=== PATIENT | female | born 1945 ===

== ENCOUNTER 2017-01-27 12:15 | Emergency (ER) | payer MEDICARE, OTHER ==
[2017-01-27 12:15] VITALS: BMI 46.6
[2017-01-27 12:23] VITALS: BP 135/98; PULSE 79; RESP 16; TEMP 97.8; O2SAT 99
--- NOTE | 2017-01-27 14:10 | ED PDOC ---
Lower Extremity Pain/Injury Time Seen by Provider: 01/27/17 13:01 Chief Complaint (Nursing): Lower Extremity Problem/Injury Chief Complaint (Provider): B/L knee pain History Per: Patient History/Exam Limitations: no limitations Onset/Duration Of Symptoms: Days Current Symptoms Are (Timing): Still Present Pain Scale Rating Of: 6 Additional Complaint(s): 71 y/o F with PMHx of IDDM, HTN presents to ED c/o B/L knee pain for the past month. Patient admis H of multiple falls, last 1 month ago. Since then L/knee pain has been presents and for the past 2 weeks R/Knee pain. Denies numbness, tingling, weakness. Pain is anterior, worse with knee flexion and ambulation and does not radiates. Denies CP, Headaches, Back pain, vision changes or SOB Past Medical History Reviewed: Nursing Documentation Vital Signs: Last Vital Signs Temp 97.8 F 01/27/17 12:23 Pulse 79 01/27/17 12:23 Resp 16 01/27/17 12:23 BP 135/98 H 01/27/17 12:23 Pulse Ox 99 01/27/17 12:23 - Medical History PMH: Arthritis, Asthma, CAD, Depression, GERD, HTN, Hypercholesterolemia, Hyperlipidemia, Hypothyroidism, Osteoporosis Denies: Chronic Kidney Disease - Surgical History Surgical History: (x 5) - Family History Family History: States: Unknown Family Hx - Home Medications Home Medications: Ambulatory Orders Medication Instructions Recorded Albuterol HFA [Ventolin HFA 90 1 puff IH Q4 PRN #1 unit 10/17/14 mcg/actuation (8 g)] Alendronate [Fosamax] 70 mg PO QWK 10/17/14 Alprazolam [Xanax] 0.5 mg PO BID 10/17/14 Aspirin [Aspirin] 162 mg PO DAILY 10/17/14 Benzonatate [Tessalon Perles] 200 mg PO Q8H PRN #30 tab 10/17/14 Calcium/Cholecalciferol [Oysco 500 1 tab PO TID 10/17/14 + D 500 mg-200 Iu] Enalapril Maleate [Enalapril] 10 mg PO DAILY 10/17/14 Gabapentin [Gabapentin] 300 mg PO BID 10/17/14 Insulin Glargine,Hum.rec.anlog 30 unit SC HS 10/17/14 [Lantus] Insulin Lispro, Recombinant 15 unit SC QPM 10/17/14 [Humalog] Insulin Lispro, Recombinant 17 unit SC QAM 10/17/14 [Humalog] Levothyroxine Sodium [Synthroid] 137 mcg PO DAILY 10/17/14 Metformin HCl [Metformin HCl] 1,000 mg PO BID 10/17/14 QUEtiapine [Seroquel] 100 mg PO HS 10/17/14 Simvastatin [Zocor] 20 mg PO DAILY 10/17/14 Sitagliptin Phosphate [Januvia] 100 mg PO DAILY 10/17/14 Albuterol 0.083% [Albuterol 3 ml IH Q6H PRN #30 neb 10/12/15 Sulfate 3 Ml] Acetaminophen [Tylenol Extra 500 mg PO TID PRN #30 tablet 12/11/15 Strength] Albuterol 0.083% [Albuterol 0.083% 3 ml IH Q6H PRN #30 neb 06/23/16 Inhal Anne-Marie (2.5 mg/3 ml) UD] Albuterol HFA [Ventolin HFA 90 2 puff IH [id number] PRN #1 bottle 06/23/16 mcg/actuation (8 g)] Nebulizer [Compact Compressor 1 dev XX PRN PRN #1 dev 06/23/16 Nebulizer] Prednisone 50 mg PO DAILY #4 tab 06/23/16 Lactulose 10 gm PO DAILY #1 solution 08/03/16 traMADol [Ultram] 50 mg PO Q8 #10 tab 08/03/16 Naproxen 500 mg PO BID #14 tab 01/27/17 - Allergies Allergies/Adverse Reactions: Allergies Allergy/AdvReac Type Severity Reaction Status Date / Time No Known Allergies Allergy Verified 08/03/16 07:29 Review of Systems ROS Statement: Except As Marked, All Systems Reviewed And Found Negative Musculoskeletal: Positive for: Other (B/L knee pain) Physical Exam - Reviewed Nursing Documentation Reviewed: Yes Vital Signs Reviewed: Yes - Physical Exam Appears: Positive for: No Acute Distress Head Exam: Positive for: ATRAUMATIC, NORMAL INSPECTION Skin: Positive for: Warm Eye Exam: Positive for: EOMI, PERRL Cardiovascular/Chest: Positive for: Regular Rate, Rhythm. Negative for: Gallop Respiratory: Positive for: Normal Breath Sounds. Negative for: Wheezing Extremity: Positive for: Tenderness (L/knee. ), Other (Limited ROM L/knee due to pain. No skin changes. No eviden swelling present.) - ECG O2 Sat by Pulse Oximetry: 99 - Progress ED Course And Treament: Pain improved with TOradol IM Knee Xray shows O/A changes. No acute Fx or dislocation seen(Pending official report) Patient will be DC home with NSAIDs and F/U with PMD in 2 to 3 days for further work up Disposition - Clinical Impression Clinical Impression: Knee osteoarthritis - Patient ED Disposition Is Patient to be Admitted: No - Disposition Disposition: Routine/Home Disposition Time: 15:00 Condition: IMPROVED Additional Instructions: F/U with PMD in 2-3 days. Prescriptions: Naproxen 500 mg PO BID #14 tab Instructions: Knee Pain (ED) Forms: [facility] (Irish) Print Language: BENINESE
--- NOTE | 2017-01-27 15:36 | RAD ---
PROCEDURE: Bilateral Knee Radiographs. HISTORY: B/L knee pain COMPARISON: Prior left knee radiograph 11/08/2010. FINDINGS: BONES: No fracture or suspicious lytic or blastic change is seen in either left or right knees. JOINTS: Advanced osteoarthritis is identified bilaterally. [place] joint space narrowing osteophyte development and articular cortical sclerosis appreciate the lateral femorotibial part of the right and medial femorotibial choroid at the left with subchondral cyst formation developed at the right knee. Limited osteophytic changes seen at the medial right foramen femorotibial compartments allan lateral left femorotibial compartment. There borderline bilateral suprapatellar bursa effusions. Vascular calcifications in the posterior knee thigh and upper leg soft tissues. A nonspecific heterogeneous calcifications seen at the left popliteal fossa. No definite bursitis pattern. Advanced the joint space narrowing and osteophyte development seen at the bilateral patellofemoral compartments. SOFT TISSUES: As above JOINT EFFUSION: As above OTHER FINDINGS: None. IMPRESSION: Advanced bilateral knee osteoarthritis without fracture subluxation or dislocation appreciated.
== END 2017-01-27 15:45 | disposition home or self-care (01) ==
LOC: H.ER 12:15
DX: M17.0 Bilateral primary osteoarthritis of knee (principal); I10 Essential (primary) hypertension; J45.909 Unspecified asthma, uncomplicated; Z86.59 Personal history of other mental and behavioral disorders; M81.0 Age-related osteoporosis without current pathological fracture; E11.9 Type 2 diabetes mellitus without complications; Z79.4 Long term (current) use of insulin
CPT/HCPCS: 73562; 96372; 99284; J1885

== ENCOUNTER 2017-05-04 10:36 | Emergency (ER) | payer MEDICARE, OTHER ==
[2017-05-04 10:36] VITALS: BMI 46.6
[2017-05-04 10:42] VITALS: TEMP 97
[2017-05-04] MEDS ORDERED: DiphenhydrAMINE 50 mg/ml Inj IVP STA (11:07)
[2017-05-04] MEDS ORDERED: DiphenhydrAMINE 50 mg/ml Inj ONE (11:13)
[2017-05-04] MEDS ORDERED: Sodium Chloride 0.9% 1,000 ML IV SCH (11:15)
--- NOTE | 2017-05-04 11:23 | ED PDOC ---
HPI: General Adult Time Seen by Provider: 05/04/17 10:50 Chief Complaint (Nursing): Abnormal Skin Integrity Chief Complaint (Provider): Itching History Per: Patient History/Exam Limitations: no limitations Onset/Duration Of Symptoms: Days Have you had recent travel within the past 21 days to any of the following countries: [place], [place], [place] or [place]?: No Current Symptoms Are (Timing): Still Present Additional History Per: Family Additional Complaint(s): 71yo female with past medical history of diabetes and hypertension, presents to ED for evaluation of itchiness all over her body for the past 3-4 days. Patient is unsure as to the obvious inciting factor of her symptom. Patient denies taking any new medications and states she has no recollection of exposure to new foods. She denies any trouble breathing, lip or throat swelling. Patient states she has been able to eat and drink normally. Of note, patient's daughter present at bedside who reports the patient lost her medications 2 weeks ago in a taxicab and has not had replacements yet; daughter believes the patient's itching might be caused due to non-compliance with her medications. Past Medical History Reviewed: Historical Data, Nursing Documentation, Vital Signs Vital Signs: Last Vital Signs Temp 97.0 F L 05/04/17 11:05 Pulse 79 05/04/17 11:05 Resp 22 05/04/17 11:05 BP 128/58 L 05/04/17 11:05 Pulse Ox 98 05/04/17 11:28 - Medical History PMH: Arthritis, Asthma, CAD, Depression, GERD, HTN, Hypercholesterolemia, Hyperlipidemia, Hypothyroidism, Osteoporosis Denies: Chronic Kidney Disease - Surgical History Surgical History: (x 5) - Family History Family History: States: No Known Family Hx, Unknown Family Hx - Living Arrangements Living Arrangements: With Family - Home Medications Home Medications: Ambulatory Orders Medication Instructions Recorded Albuterol HFA [Ventolin HFA 90 1 puff IH Q4 PRN #1 unit 10/17/14 mcg/actuation (8 g)] Alendronate [Fosamax] 70 mg PO QWK 10/17/14 Alprazolam [Xanax] 0.5 mg PO BID 10/17/14 Aspirin [Aspirin] 162 mg PO DAILY 10/17/14 Benzonatate [Tessalon Perles] 200 mg PO Q8H PRN #30 tab 10/17/14 Calcium/Cholecalciferol [Oysco 500 1 tab PO TID 10/17/14 + D 500 mg-200 Iu] Enalapril Maleate [Enalapril] 10 mg PO DAILY 10/17/14 Gabapentin [Gabapentin] 300 mg PO BID 10/17/14 Insulin Glargine,Hum.rec.anlog 30 unit SC HS 10/17/14 [Lantus] Insulin Lispro, Recombinant 15 unit SC QPM 10/17/14 [Humalog] Insulin Lispro, Recombinant 17 unit SC QAM 10/17/14 [Humalog] Levothyroxine Sodium [Synthroid] 137 mcg PO DAILY 10/17/14 Metformin HCl [Metformin HCl] 1,000 mg PO BID 10/17/14 QUEtiapine [Seroquel] 100 mg PO HS 10/17/14 Simvastatin [Zocor] 20 mg PO DAILY 10/17/14 Sitagliptin Phosphate [Januvia] 100 mg PO DAILY 10/17/14 Albuterol 0.083% [Albuterol 3 ml IH Q6H PRN #30 neb 10/12/15 Sulfate 3 Ml] Acetaminophen [Tylenol Extra 500 mg PO TID PRN #30 tablet 12/11/15 Strength] Albuterol 0.083% [Albuterol 0.083% 3 ml IH Q6H PRN #30 neb 06/23/16 Inhal Anne-Marie (2.5 mg/3 ml) UD] Albuterol HFA [Ventolin HFA 90 2 puff IH [id number] PRN #1 bottle 06/23/16 mcg/actuation (8 g)] Nebulizer [Compact Compressor 1 dev XX PRN PRN #1 dev 06/23/16 Nebulizer] Prednisone 50 mg PO DAILY #4 tab 06/23/16 Lactulose 10 gm PO DAILY #1 solution 08/03/16 traMADol [Ultram] 50 mg PO Q8 #10 tab 08/03/16 Naproxen 500 mg PO BID #14 tab 01/27/17 Famotidine [Pepcid] 20 mg PO BID #30 tab 05/04/17 Hydroxyzine HCl 25 mg PO TID PRN #15 tablet 05/04/17 - Allergies Allergies/Adverse Reactions: Allergies Allergy/AdvReac Type Severity Reaction Status Date / Time No Known Allergies Allergy Verified 05/04/17 11:05 Review of Systems ROS Statement: Except As Marked, All Systems Reviewed And Found Negative Constitutional: Negative for: Fever, Chills ENT: Negative for: Throat Swelling, Other (lip swellin) Cardiovascular: Negative for: Chest Pain Respiratory: Negative for: Shortness of Breath Skin: Positive for: Other (itching all over body) Physical Exam - Reviewed Nursing Documentation Reviewed: Yes Vital Signs Reviewed: Yes - Physical Exam Appears: Positive for: Non-toxic, No Acute Distress Head Exam: Positive for: ATRAUMATIC, NORMAL INSPECTION, NORMOCEPHALIC Skin: Positive for: Warm, Rash (scratch markes noted to trunk and back; area of redness noted to volar surface of left forearm.) Eye Exam: Positive for: Normal appearance Neck: Positive for: Supple Cardiovascular/Chest: Positive for: Regular Rate, Rhythm Respiratory: Positive for: Normal Breath Sounds. Negative for: Respiratory Distress Neurologic/Psych: Positive for: Alert, Oriented. Negative for: Motor/Sensory Deficits - Laboratory Results Result Diagrams: 05/04/17 11:30 05/04/17 11:30 - ECG O2 Sat by Pulse Oximetry: 98 (RA) Pulse Ox Interpretation: Normal Medical Decision Making Medical Decision Making: Time: 1106 Impression: Generalized itching, possible allergic reaction Plan: -- Benadryl -- Pepicd -- IV Fluids Reassess Scribe Attestation: Documented by Ruth Canales acting as a scribe for Roseann Hinojosa MD. Provider Attestation: All medical record entries made by the Scribe were at my direction and personally dictated by me. I have reviewed the chart and agree that the record accurately reflects my personal performance of the history, physical exam, medical decision making, and the department course for this patient. I have also personally directed, reviewed, and agree with the discharge instructions and disposition. Disposition - Clinical Impression Clinical Impression: Pruritic condition - Patient ED Disposition Is Patient to be Admitted: No Doctor Will See Patient In The: Office Counseled Patient/Family Regarding: Diagnosis, Need For Followup, Rx Given - Disposition Disposition: Routine/Home Disposition Time: 13:15 Condition: IMPROVED Prescriptions: Famotidine [Pepcid] 20 mg PO BID #30 tab Hydroxyzine HCl 25 mg PO TID PRN #15 tablet PRN Reason: Itching / Pruritus Instructions: Itchy Skin (ED) Forms: [facility] (Icelandic) - POA Present On Arrival: None
[2017-05-04 11:35] LABS: BASO # 0.1 K/uL (0.0-0.2); BASO % 0.8 % (0.0-2.0); EOS # 0.1 K/uL (0.0-0.7); EOS % 1.1 % (0.0-4.0); HEMATOCRIT 36.8 % (34.0-47.0); LYMPH # 1.7 K/uL (1.0-4.3); LYMPH % 21.7 % (20.0-40.0); MEAN CELL VOLUME 87.2 fl (81.0-99.0); MEAN CORPUSCULAR HGB CONC 34.5 g/dL (33.0-37.0); MONO # 0.6 K/uL (0.0-0.8); MONO % 7.2 % (0.0-10.0); NEUT # 5.3 K/uL (1.8-7.0); NEUT % 69.2 % (50.0-75.0); NRBC % 0.2 % (0.0-0.0); RED CELL DISTRIBUTION WIDTH 13.6 % (11.5-14.5); WHITE BLOOD COUNT 7.7 K/uL (4.8-10.8)
[2017-05-04 11:52] LABS: BILIRUBIN,TOTAL 0.7 mg/dl (0.2-1.3); CALCIUM 9.5 mg/dL (8.4-10.2)
[2017-05-04 12:04] LABS: POTASSIUM 5.2 MMOL/L (3.6-5.0); TOTAL PROTEIN 8.3 G/DL (6.3-8.2)
[2017-05-04 14:15] VITALS: BP 148/76; PULSE 77; RESP 20; O2SAT 96
== END 2017-05-04 14:15 | disposition home or self-care (01) ==
LOC: H.ER 10:36
DX: L29.9 Pruritus, unspecified (principal); E11.9 Type 2 diabetes mellitus without complications; E78.00 Pure hypercholesterolemia, unspecified; F32.9 Major depressive disorder, single episode, unspecified; I10 Essential (primary) hypertension; I25.10 Atherosclerotic heart disease of native coronary artery without angina pectoris; J45.909 Unspecified asthma, uncomplicated; K21.9 Gastro-esophageal reflux disease without esophagitis; Z79.4 Long term (current) use of insulin; Z79.82 Long term (current) use of aspirin
CPT/HCPCS: 80053; 82948; 85025; 96374; 96375; 99283; J1200; J7040

== ENCOUNTER 2018-08-31 10:38 | Observation (INO) | payer MEDICARE, OTHER ==
--- NOTE | 2018-08-31 11:06 | ED PDOC ---
HPI: SOB/CHF/COPD Time Seen by Provider: 08/31/18 10:54 Chief Complaint (Nursing): Shortness Of Breath History Per: Patient Onset/Duration Of Symptoms: Days (3) Current Symptoms Are (Timing): Still Present Exacerbating Factor(s): Coughing Severity: Mild Associated Symptoms: Chest Pain, Productive Cough. denies: Fever Additional Complaint(s): Right sided chest pain assoc with cough productive dark sputum x 3 days. Denies fever. Also assoc with mild SOB. Had similar sxs last Novemeber with low probability V/Q scan and nonobstructive CAD on cath. Past Medical History Vital Signs: Last Vital Signs Temp 98 F 08/31/18 10:57 Pulse 76 08/31/18 10:57 Resp 22 08/31/18 10:57 BP 181/76 H 08/31/18 10:57 Pulse Ox 99 08/31/18 10:57 - Medical History PMH: Arthritis, Asthma, CAD, Depression, Diabetes, GERD, HTN, Hy percholesterolemia, Hyperlipidemia, Hypothyroidism, Osteoporosis Denies: Chronic Kidney Disease - Surgical History Surgical History: (x 5) - Family History Family History: States: Unknown Family Hx - Home Medications Home Medications: Ambulatory Orders Medication Instructions Recorded Albuterol Sulfate [Ventolin Hfa] 2 puff IH Q6 PRN 03/07/18 Alprazolam [Xanax] 0.5 mg PO Q12 03/07/18 Amantadine [Amantadine 100 mg Cap] 100 mg PO DAILY 03/07/18 Aspirin [Ecotrin] 81 mg PO DAILY 03/07/18 Enalapril Maleate [Vasotec] 10 mg PO DAILY 03/07/18 Gabapentin [Neurontin] 300 mg PO Q12 03/07/18 Insulin Glargine, Recombina 42 unit SC QPM 03/07/18 [Lantus] Levothyroxine [Synthroid] 88 mcg PO DAILY 03/07/18 MetFORMIN [glucoPHAGE] 1,000 mg PO BID 03/07/18 SITagliptin [Januvia] 100 mg PO DAILY 03/07/18 Salmeterol Xinafoate/Fluticaso 2 puff IH Q12 03/07/18 [Advair Hfa 45-21] Metoprolol Tartrate [Lopressor] 25 mg PO DAILY 04/25/18 - Allergies Allergies/Adverse Reactions: Allergies Allergy/AdvReac Type Severity Reaction Status Date / Time No Known Allergies Allergy Verified 08/31/18 10:57 Review of Systems ROS Statement: Except As Marked, All Systems Reviewed And Found Negative Constitutional: Negative for: Fever Cardiovascular: Positive for: Chest Pain Respiratory: Positive for: Cough, Shortness of Breath, Sputum Gastrointestinal: Positive for: Abdominal Pain. Negative for: Nausea, Vomiting, Diarrhea Genitourinary Female: Negative for: Dysuria, Frequency Physical Exam - Reviewed Nursing Documentation Reviewed: Yes Vital Signs Reviewed: Yes - Physical Exam Appears: Positive for: Non-toxic, No Acute Distress Head Exam: Positive for: ATRAUMATIC, NORMAL INSPECTION, NORMOCEPHALIC Skin: Positive for: Normal Color, Warm, DRY Eye Exam: Positive for: EOMI, Normal appearance, PERRL ENT: Positive for: Normal ENT Inspection Neck: Positive for: Normal, Painless ROM Cardiovascular/Chest: Positive for: Regular Rate, Rhythm Respiratory: Positive for: CNT, Normal Breath Sounds Gastrointestinal/Abdominal: Positive for: Soft, Tenderness (RLQ ). Negative for: Guarding, Rebound Back: Positive for: Normal Inspection Extremity: Positive for: Normal ROM Neurological/Psych: Positive for: Awake, Alert, Normal Tone - Laboratory Results Result Diagrams: 08/31/18 11:40 08/31/18 11:40 - ECG O2 Sat by Pulse Oximetry: 99 Medical Decision Making Medical Decision Makin Labs reviewed, patient with elevated blood glucose level at 515. Human insulin 10 units ordered. Disposition - Clinical Impression Clinical Impression: Chest pain, Uncontrolled diabetes mellitus - Patient ED Disposition Is Patient to be Admitted: Yes - Disposition Disposition Time: 14:06 Condition: FAIR Forms: [employer] (Somali) - Pt Status Changed To: Hospital Disposition Of: Observation - POA Present On Arrival: None
[2018-08-31 11:53] LABS: BASO % 0.8 % (0.0-2.0); EOS # 0.2 K/uL (0.0-0.7); EOS % 3.4 % (0.0-4.0); HEMOGLOBIN 11.9 g/dL (12.0-16.0); LYMPH # 0.9 K/uL (1.0-4.3); LYMPH % 18.2 % (20.0-40.0); MEAN CELL VOLUME 90.6 fl (81.0-99.0); MEAN CORPUSCULAR HEMOGLOBIN 29.8 pg (27.0-31.0); MEAN CORPUSCULAR HGB CONC 32.9 g/dL (33.0-37.0); MEAN PLATELET VOLUME 8.8 fl (7.2-11.7); MONO # 0.4 K/uL (0.0-0.8); MONO % 7.9 % (0.0-10.0); NEUT # 3.6 K/uL (1.8-7.0); NEUT % 69.7 % (50.0-75.0); RBC 3.99 Mil/uL (3.80-5.20); RED CELL DISTRIBUTION WIDTH 14.1 % (11.5-14.5); WHITE BLOOD COUNT 5.2 K/uL (4.8-10.8)
[2018-08-31 12:25] LABS: ALB/GLOB RATIO 1.2 (1.0-2.1); ALBUMIN 4.3 g/dL (3.5-5.0); ALT/SGPT 13 U/L (9-52); AST/SGOT 16 U/L (14-36); BLOOD UREA NITROGEN 32 mg/dl (7-17); CALCIUM 9.9 mg/dL (8.4-10.2); GFR NON-AFRICAN AMERICAN 40
[2018-08-31] MEDS ORDERED: Sodium Chloride 0.9% 1,000 ML IV STA (12:27)
[2018-08-31] MEDS ORDERED: Insulin Regular 100 units/ml SC STA (12:27)
--- NOTE | 2018-08-31 14:01 | CT ---
Date of service: 08/31/2018 PROCEDURE: CT Abdomen and Pelvis without intravenous contrast HISTORY: COMPARISON: None. TECHNIQUE: CT scan of the abdomen and pelvis was performed without administration of intravenous contrast. Oral contrast was not administered. Coronal and sagittal reformatted images were obtained. Radiation dose: Total exam DLP = 1297.74 mGy-cm. This CT exam was performed using one or more of the following dose reduction techniques: Automated exposure control, adjustment of the mA and/or kV according to patient size, and/or use of iterative reconstruction technique. FINDINGS: LOWER THORAX: The visualized lungs are clear. LIVER: Normal in size. No gross lesion or ductal dilatation. GALLBLADDER AND BILE DUCTS: Solitary calcified gallstone. No common bile duct dilatation. PANCREAS: Mild fatty atrophy of the pancreas. No gross lesion or ductal dilatation. SPLEEN: Normal in size. ADRENALS: Normal in size. No discrete nodule. KIDNEYS AND URETERS: Both kidneys are normal in size. No hydronephrosis or nephrolithiasis. There is an extrarenal pelvis on the right and mild dilatation of the right ureteral without evidence for obstructing stone.. 1.5 cm simple cyst in the right interpolar region. Nonspecific perinephric fat stranding. VASCULATURE: Normal in caliber. No aortic aneurysm. There are aortic atherosclerotic calcifications present. BOWEL: Evaluation of the bowel is limited in the absence of oral contrast. There are fluid-filled mildly dilated small bowel loops and fluid in the ascending and transverse colon. There is moderate amount of stool in the left hemicolon. There is scattered colonic diverticulosis without CT evidence for acute diverticulitis. APPENDIX: Normal appendix. PERITONEUM: No free fluid. No free air. LYMPH NODES: No enlarged lymph nodes. BLADDER: Over distended and normal in appearance. REPRODUCTIVE: The uterus is normal in size. The uterus is stretched over the posterior wall of the urinary bladder and overlies the dome of the bladder. BONES: No acute fracture. Within normal limits for the patient's age. OTHER FINDINGS: None. IMPRESSION: No evidence for nephrolithiasis, hydronephrosis or obstructive uropathy. Extrarenal pelvis in the right kidney and mild diffuse dilatation of the right ureteral without evidence of obstructing stone. Findings could be related to recent passage of stone or gastro Findings are most compatible with a nonspecific acute infectious/inflammatory enteritis and colitis. No bowel obstruction. Scattered colonic diverticulosis without CT evidence for acute diverticulitis. Cholelithiasis.
[2018-08-31] MEDS ORDERED: Nitroglycerin 2% 15 INCH/30 GM TUBE TOP STA (14:07)
[2018-08-31] MEDS ORDERED: Nitroglycerin 2% Ointment Foilpak UD TOP ONE (15:01)
--- NOTE | 2018-08-31 15:31 | CP.PCM.HP ---
<Kunal Cabrales - Last Filed: 08/31/18 18:37> History of Present Illness - History of Present Illness History of Present Illness: 72 Y/O female with PMH of multiple comorbidities including Obesity, uncontrolled IDDM, HTN, hypthyroidsm, OA, Anxiety and Intermittent Asthma presents to the ED with c/o intermittent moderate right sided chest pain for the last 2 to 3 days, presssure like in character, with no radiation, she has not noted association with activity. Patient laciso reports c/o fatigue for approximately 2 weeks associated with dry cough (no phlegm) and SOB on exertion. Patient is a poor historian and also part of the history is obtained from family at bedside and reviewed of MR. Patient denies fever, chills, abdominal pain, N/V/D, or dyaphoresis at this time. Of note: patient was admitted in February 2018 with similar symptoms, Lung VQ scan done showed low probavility PE. -Patient had cardiac cath on May 03, [address] Garcia due to symptoms consistent with atypical chest pain, the cath showed impression Mild nonobstructive coronary artery disease. Recommendation to continue medical management and risk factors modifications. -Echocardiogrma done November 10, [address] Bradshaw showed LV normal thickness and syze, normal LV segmenatl motion. EF low normal 45-50%, There is moderate pulmonary htn. ROS: 12 systems reviewed and found unremarkable, except as per HPI PMD: [facility] PMH: HTN, DM, Asthma, OA, Hypothyroidsm FMH: Father of cancer (unclear to pt). SOCHx: Former smoker quit 15 years ago, denies ETOH, lives alone at home and ambulates with a cane. ALLERG: NKDA SURG: Reports C-sections x 4, Tubal ligation. Next of renetta: Son Bi [phone] ED Course: Hb 11.9, Hto36.2 Chem: K 5.1, BUN 32, Creat 1.3, GFR 40. Troponin x1 negative BS 515 on arrival EKG NSR with PVC, no T or ST changes. CXR no active pulmonary disease. ED treatments: IVF NS @250 1L given, insulin Present on Admission - Present on Admission Any Indicators Present on Admission: No History of DVT/PE: No History of Uncontrolled Diabetes: Yes Urinary Catheter: No Decubitus Ulcer Present: No Past Patient History - Past Medical History & Family History Past Medical History?: Yes - Past Social History Smoking Status: Never Smoked - CARDIAC Hx Hypercholesterolemia: Yes Hx Hypertension: Yes - PULMONARY Hx Asthma: Yes - NEUROLOGICAL Hx Neurological Disorder: No - HEENT Hx HEENT Problems: Yes - RENAL Hx Chronic Kidney Disease: No - ENDOCRINE/METABOLIC Hx Hypothyroidism: Yes - HEMATOLOGICAL/ONCOLOGICAL Hx Blood Transfusions: Yes Hx Blood Transfusion Reaction: No - INTEGUMENTARY Hx Dermatological Problems: No - MUSCULOSKELETAL/RHEUMATOLOGICAL Hx Arthritis: Yes Hx Osteoporosis: Yes - GASTROINTESTINAL Hx Gastrointestinal Disorders: Yes Hx Gastroesophageal Reflux: Yes - GENITOURINARY/GYNECOLOGICAL Hx Genitourinary Disorders: No - PSYCHIATRIC Hx Depression: Yes - SURGICAL HISTORY Hx Surgeries: Yes Hx Cardiac Catheterization: Yes Hx Section: Yes Hx Tubal Ligation: Yes - ANESTHESIA Hx Anesthesia: Yes Hx Anesthesia Reactions: No Hx Malignant Hyperthermia: No Meds Allergies/Adverse Reactions: Allergies Allergy/AdvReac Type Severity Reaction Status Date / Time No Known Allergies Allergy Verified 08/31/18 10:57 Physical Exam - Constitutional Appears: No Acute Distress - Head Exam Head Exam: ATRAUMATIC, NORMOCEPHALIC - Eye Exam Eye Exam: EOMI - ENT Exam ENT Exam: Mucous Membranes Dry - Respiratory Exam Respiratory Exam: Clear to Auscultation Bilateral. absent: Wheezes - Cardiovascular Exam Cardiovascular Exam: REGULAR RHYTHM, +S1, +S2 - GI/Abdominal Exam GI & Abdominal Exam: Soft - Extremities Exam Extremities exam: Negative for: pedal edema - Neurological Exam Neurological exam: Alert, Oriented x3 - Psychiatric Exam Psychiatric exam: Anxious - Skin Skin Exam: Normal Color, Warm Results - Vital Signs Recent Vital Signs: Last Vital Signs Temp 98 F 08/31/18 10:57 Pulse 64 08/31/18 14:05 Resp 18 08/31/18 14:05 BP 131/74 08/31/18 13:35 Pulse Ox 99 08/31/18 14:06 - Labs Result Diagrams: 08/31/18 11:40 08/31/18 11:40 Labs: Laboratory Results - last 24 hr 08/31/18 08/31/18 08/31/18 11:40 11:40 12:20 WBC 5.2 RBC 3.99 Hgb 11.9 L Hct 36.2 MCV 90.6 MCH 29.8 MCHC 32.9 L RDW 14.1 Plt Count 265 MPV 8.8 Neut % (Auto) 69.7 Lymph % (Auto) 18.2 L [place] % (Auto) 7.9 Eos % (Auto) 3.4 Baso % (Auto) 0.8 Neut # (Auto) 3.6 Lymph # (Auto) 0.9 L [place] # (Auto) 0.4 Eos # (Auto) 0.2 Baso # (Auto) 0.0 Sodium 139 Potassium 5.1 H Chloride 104 Carbon Dioxide 23 Anion Gap 17 BUN 32 H Creatinine 1.3 H Est GFR ( Amer) 49 Est GFR (Non-Af Amer) 40 POC Glucose (mg/dL) > 500 H* Random Glucose 515 H* D Calcium 9.9 Total Bilirubin 0.4 AST 16 ALT 13 Alkaline Phosphatase 199 H D Troponin I < 0.0120 Total Protein 7.9 Albumin 4.3 Globulin 3.6 Albumin/Globulin Ratio 1.2 08/31/18 08/31/18 13:34 15:25 WBC RBC Hgb Hct MCV MCH MCHC RDW Plt Count MPV Neut % (Auto) Lymph % (Auto) [place] % (Auto) Eos % (Auto) Baso % (Auto) Neut # (Auto) Lymph # (Auto) [place] # (Auto) Eos # (Auto) Baso # (Auto) Sodium Potassium Chloride Carbon Dioxide Anion Gap BUN Creatinine Est GFR ( Amer) Est GFR (Non-Af Amer) POC Glucose (mg/dL) 414 H* 337 H Random Glucose Calcium Total Bilirubin AST ALT Alkaline Phosphatase Troponin I Total Protein Albumin Globulin Albumin/Globulin Ratio Assessment & Plan - Assessment and Plan (Free Text) Assessment: 72 Y/O female with PMH of multiple comorbidities including Obesity, uncontrolled IDDM, HTN, hypthyroidsm, OA, Anxiety and Inttermittent Asthma presents to the ED with c/o intermittent moderate right sided chest pain for the last 2 to 3 days, presssure like in character, with no radiation, she has not noted association with activity. Patient allso reports c/o fatigue for approximately 2 weeks associated with dry cough (no phlegm) and SOB on exertion. Patient will be admitted for atypical ches pain r/o ACS. Plan: Atypical chest pain r/o ACS Admite to tele VS monitoring O2 2L NC prn EKG: NSR with PVC, no T or ST changes. CXR no active pulmonary disease TropnoninI x1 negative, F/u x2 more Consult Dr Bradshaw, aware, recommendations appreciated. Asp 325 given, c/w asp 81 PO QD Atorvastatin 20 PO QHS c/w Metoprolol 25 QHS NTG SL prn CP q5 min x3 dose f/u Lipid panel IDDM Uncontrolled HbA1C 8.4 02/2018 Diabetic diet BS 515 on arrival c/w IVF NS Accucheck AC/HS with regulal Insulin SS C/w I Lispro Insulin levemir 42 Sc Qhs F/u BMP Azotemia-BUN 32/creat 1.3 Posibly SUSAN 2/2 dehydration, likely underlying CKD as well Gentle hydration Enalapril held F/u BMP HTN Controlled c/w Metoprolol 25 QHS Hypothryopidsm c/w Levothyroxine 88 mcg PO QD TSH 0.67 in 02/2018 f/u repeat TSH DVT prohylaxis Lovenox 40 SC QD (adequate for creat cl) <Adam Sandhu D - Last Filed: 08/31/18 19:08> Results - Vital Signs Recent Vital Signs: Last Vital Signs Temp 98.0 F 08/31/18 16:43 Pulse 74 08/31/18 16:43 Resp 17 08/31/18 16:43 BP 162/60 H 08/31/18 16:43 Pulse Ox 99 08/31/18 16:43 - Labs Result Diagrams: 08/31/18 11:40 08/31/18 11:40 Labs: Laboratory Results - last 24 hr 08/31/18 08/31/18 08/31/18 11:40 11:40 12:20 WBC 5.2 RBC 3.99 Hgb 11.9 L Hct 36.2 MCV 90.6 MCH 29.8 MCHC 32.9 L RDW 14.1 Plt Count 265 MPV 8.8 Neut % (Auto) 69.7 Lymph % (Auto) 18.2 L [place] % (Auto) 7.9 Eos % (Auto) 3.4 Baso % (Auto) 0.8 Neut # (Auto) 3.6 Lymph # (Auto) 0.9 L [place] # (Auto) 0.4 Eos # (Auto) 0.2 Baso # (Auto) 0.0 Sodium 139 Potassium 5.1 H Chloride 104 Carbon Dioxide 23 Anion Gap 17 BUN 32 H Creatinine 1.3 H Est GFR ( Amer) 49 Est GFR (Non-Af Amer) 40 POC Glucose (mg/dL) > 500 H* Random Glucose 515 H* D Calcium 9.9 Total Bilirubin 0.4 AST 16 ALT 13 Alkaline Phosphatase 199 H D Troponin I < 0.0120 Total Protein 7.9 Albumin 4.3 Globulin 3.6 Albumin/Globulin Ratio 1.2 Triglycerides Cholesterol LDL Cholesterol Direct HDL Cholesterol 08/31/18 08/31/18 08/31/18 13:34 15:25 16:00 WBC RBC Hgb Hct MCV MCH MCHC RDW Plt Count MPV Neut % (Auto) Lymph % (Auto) [place] % (Auto) Eos % (Auto) Baso % (Auto) Neut # (Auto) Lymph # (Auto) [place] # (Auto) Eos # (Auto) Baso # (Auto) Sodium Potassium Chloride Carbon Dioxide Anion Gap BUN Creatinine Est GFR ( Amer) Est GFR (Non-Af Amer) POC Glucose (mg/dL) 414 H* 337 H Random Glucose Calcium Total Bilirubin AST ALT Alkaline Phosphatase Troponin I Total Protein Albumin Globulin Albumin/Globulin Ratio Triglycerides 127 Cholesterol 163 LDL Cholesterol Direct 55 HDL Cholesterol 72 H 08/31/18 18:02 WBC RBC Hgb Hct MCV MCH MCHC RDW Plt Count MPV Neut % (Auto) Lymph % (Auto) [place] % (Auto) Eos % (Auto) Baso % (Auto) Neut # (Auto) Lymph # (Auto) Collier # (Auto) Eos # (Auto) Baso # (Auto) Sodium Potassium Chloride Carbon Dioxide Anion Gap BUN Creatinine Est GFR ( Amer) Est GFR (Non-Af Amer) POC Glucose (mg/dL) 262 H Random Glucose Calcium Total Bilirubin AST ALT Alkaline Phosphatase Troponin I Total Protein Albumin Globulin Albumin/Globulin Ratio Triglycerides Cholesterol LDL Cholesterol Direct HDL Cholesterol Attending/Attestation - Attestation I have personally seen and examined this patient.: Yes I have fully participated in the care of the patient.: Yes I have reviewed all pertinent clinical information: Yes Notes (Text): 08/31/18 19:07 Patient seen and examined with resident. Case discussed and agreed with assessment and plan.
[2018-08-31] MEDS ORDERED: Dextrose 50% SYRINGE Inj (50 ml) IV PRN (16:19)
[2018-08-31] MEDS ORDERED: Glucagon Recombinant 1 mg Inj IM PRN (16:19)
--- NOTE | 2018-08-31 16:26 | RAD ---
Date of service: 08/31/2018 HISTORY: Cough COMPARISON: 03/07/2018 TECHNIQUE: Chest PA and lateral FINDINGS: LINES AND TUBES: None. LUNG AND PLEURA: The lungs are well inflated and clear. No pleural effusion or pneumothorax. HEART AND MEDIASTINUM: There is mild cardiomegaly. No aortic atherosclerotic calcifications present. The hilar and mediastinal contours are within normal limits. SKELETAL STRUCTURES: The bony structures are within normal limits for the patient's age. VISUALIZED UPPER ABDOMEN: Normal. OTHER FINDINGS: None. IMPRESSION: No active pulmonary disease.
[2018-08-31 16:46] LABS: HDL CHOLESTEROL 72 MG/DL (30-70)
[2018-08-31 16:56] LABS: LDL CHOLESTEROL 55 mg/dL (0-129)
--- NOTE | 2018-08-31 17:14 | CARD ---
APPROVED REPORT Date of service: 08/31/2018 EKG Measurement Heart [id number] <Conclusion> Sinus rhythm with occasional premature ventricular complexes Otherwise normal ECG
[2018-08-31] MEDS ORDERED: Insulin Detemir 100 Units/ml Inj SC SCH (18:00)
[2018-08-31] MEDS: Insulin Regular 100 units/ml SC SCH ×2 (18:09→22:52)
[2018-08-31] MEDS ORDERED: Influenza Vaccine 60 mcg/0.5 mL SYR (4YR UP) IM ONE (20:51)
[2018-08-31] MEDS: Ranolazine 500 mg Extended Release Tablets PO SCH (22:51)
[2018-08-31] MEDS: Sodium Chloride 0.9% 1,000 ML IV SCH (23:06)
[2018-09-01] MEDS: Sodium Chloride 0.9% 1,000 ML IV SCH ×2 (01:47→12:32)
[2018-09-01 05:46] LABS: BASO # 0.1 K/uL (0.0-0.2); BASO % 0.8 % (0.0-2.0); EOS # 0.2 K/uL (0.0-0.7); EOS % 3.1 % (0.0-4.0); HEMOGLOBIN 9.9 g/dL (12.0-16.0); LYMPH # 2.2 K/uL (1.0-4.3); LYMPH % 31.6 % (20.0-40.0); MEAN CORPUSCULAR HEMOGLOBIN 30.1 pg (27.0-31.0); MEAN CORPUSCULAR HGB CONC 33.5 g/dL (33.0-37.0); MEAN PLATELET VOLUME 8.6 fl (7.2-11.7); MONO # 0.6 K/uL (0.0-0.8); MONO % 8.6 % (0.0-10.0); NEUT # 3.9 K/uL (1.8-7.0); NEUT % 55.9 % (50.0-75.0); RBC 3.3 Mil/uL (3.80-5.20); RED CELL DISTRIBUTION WIDTH 13.5 % (11.5-14.5)
[2018-09-01 05:57] LABS: CALCIUM 8.8 mg/dL (8.4-10.2)
[2018-09-01 05:59] VITALS: BMI 36.3
[2018-09-01] MEDS ORDERED: Levothyroxine 88 MCG TAB PO SCH (06:30)
[2018-09-01] MEDS ORDERED: Insulin Lispro (humaLOG) 100 Units/ml Inj SC SCH ×2 (08:00→11:30)
[2018-09-01] MEDS ORDERED: Enoxaparin 40 mg Syringe SC SCH (09:00)
--- NOTE | 2018-09-01 09:37 | CP.PCM.DIS ---
Provider - Provider Date of Admission: 08/31/18 14:12 Attending physician: Adam Sandhu MD Consults: 08/31/18 14:13 Physician Consult Stat Comment: Consulting Provider: Leeroy Bradshaw V Consulting Physician: Leeroy Bradshaw V Reason for Consult: Chest pain Time Spent in preparation of Discharge (in minutes): 33 Diagnosis - Discharge Diagnosis (1) Chest pain Status: Acute (2) Uncontrolled diabetes mellitus Status: Acute (3) CKD (chronic kidney disease) stage 3, GFR 30-59 ml/min Status: Chronic (4) Hypertension Status: Chronic (5) Hypothyroidism Status: Chronic Hospital Course - Lab Results Lab Results: Most Recent Lab Values WBC 7.0 K/uL (4.8-10.8) 09/01/18 05:00 RBC 3.30 Mil/uL (3.80-5.20) L 09/01/18 05:00 Hgb 9.9 g/dL (12.0-16.0) L D 09/01/18 05:00 Hct 29.7 % (34.0-47.0) L 09/01/18 05:00 MCV 90.0 fl (81.0-99.0) 09/01/18 05:00 MCH 30.1 pg (27.0-31.0) 09/01/18 05:00 MCHC 33.5 g/dL (33.0-37.0) 09/01/18 05:00 RDW 13.5 % (11.5-14.5) 09/01/18 05:00 Plt Count 221 K/uL (130-400) 09/01/18 05:00 MPV 8.6 fl (7.2-11.7) 09/01/18 05:00 Neut % (Auto) 55.9 % (50.0-75.0) 09/01/18 05:00 Lymph % (Auto) 31.6 % (20.0-40.0) 09/01/18 05:00 [place] % (Auto) 8.6 % (0.0-10.0) 09/01/18 05:00 Eos % (Auto) 3.1 % (0.0-4.0) 09/01/18 05:00 Baso % (Auto) 0.8 % (0.0-2.0) 09/01/18 05:00 Neut # (Auto) 3.9 K/uL (1.8-7.0) 09/01/18 05:00 Lymph # (Auto) 2.2 K/uL (1.0-4.3) 09/01/18 05:00 [place] # (Auto) 0.6 K/uL (0.0-0.8) 09/01/18 05:00 Eos # (Auto) 0.2 K/uL (0.0-0.7) 09/01/18 05:00 Baso # (Auto) 0.1 K/uL (0.0-0.2) 09/01/18 05:00 Sodium 140 mmol/l (132-148) 09/01/18 05:00 Potassium 4.4 MMOL/L (3.6-5.0) 09/01/18 05:00 Chloride 109 mmol/L (98-107) H 09/01/18 05:00 Carbon Dioxide 23 mmol/L (22-30) 09/01/18 05:00 Anion Gap 12 (10-20) 09/01/18 05:00 BUN 33 mg/dl (7-17) H 09/01/18 05:00 Creatinine 1.3 mg/dl (0.7-1.2) H 09/01/18 05:00 Est GFR ( Amer) 49 09/01/18 05:00 Est GFR (Non-Af Amer) 40 09/01/18 05:00 POC Glucose (mg/dL) 128 mg/dL (65-110) H 09/01/18 07:07 Random Glucose 152 mg/dL (65-105) H 09/01/18 05:00 Calcium 8.8 mg/dL (8.4-10.2) 09/01/18 05:00 Total Bilirubin 0.4 mg/dl (0.2-1.3) 08/31/18 11:40 AST 16 U/L (14-36) 08/31/18 11:40 ALT 13 U/L (9-52) 08/31/18 11:40 Alkaline Phosphatase 199 U/L (38-126) H D 08/31/18 11:40 Troponin I < 0.0120 ng/mL (0.00-0.120) 09/01/18 01:30 Total Protein 7.9 G/DL (6.3-8.2) 08/31/18 11:40 Albumin 4.3 g/dL (3.5-5.0) 08/31/18 11:40 Globulin 3.6 gm/dL (2.2-3.9) 08/31/18 11:40 Albumin/Globulin Ratio 1.2 (1.0-2.1) 08/31/18 11:40 Triglycerides 127 mg/DL (0-149) 08/31/18 16:00 Cholesterol 163 mg/dL (0-199) 08/31/18 16:00 LDL Cholesterol Direct 55 mg/dL (0-129) 08/31/18 16:00 HDL Cholesterol 72 MG/DL (30-70) H 08/31/18 16:00 TSH 3rd Generation 2.24 mIU/ML (0.46-4.68) 08/31/18 19:47 - Hospital Course Hospital Course: 72 Y/O female with PMH of multiple comorbidities including Obesity, uncontrolled IDDM, HTN, hypthyroidsm, OA, Anxiety and Inttermittent Asthma presents to the ED with c/o intermittent moderate right sided chest pain for the last 2 to 3 days, presssure like in character, with no radiation, she had not noted association with activity. Patient allso reports c/o fatigue for approximately 2 weeks associated with dry cough (no phlegm) and SOB on exertion. Patient was admitted for atypical ches pain r/o ACS. -Patient had cardiac cath on May 03, [address] Garcia due to symptoms consistent with atypical chest pain, the cath showed impression Mild nonobstructive coronary artery disease. Recommendation to continue medical management and risk factors modifications. -Echocardiogrma done November 10, [address] Bradshaw showed LV normal thickness and syze, normal LV segmenatl motion. EF low normal 45-50%, There is moderate pulmonary htn. During hospital course patient had EKG done shows NSR with PVC, no T or ST changes, Cardiac torponins done x 3 negative. Patient found to have mild azotemia likely due to underlying CKD vs SUSAN, noted her BUN32/creatinine 1.3 is probably her baseline already at this time. Patient found to have uncontrolled IDDM, admits poor diet compliance. She has HbA1C 8.4 in february on arrival her BS 515, which improved significnatly during stay. Patient was monitored, treated with gentle hydration. Patient today is stable for discharge home with instruction to follow up outpatient with PMD at [facility] within a week for continue medical management and risk factors modifications. Patient denies chest pain, SOB, cough, abdominal pain, fever. VS stable, remains afebrile. Patient to continue her medications on discharge, follow up with PMD within a week, attention to monitoring on BP and renal function after DC. Discharge Exam - Head Exam Head Exam: ATRAUMATIC, NORMOCEPHALIC - Eye Exam Eye Exam: EOMI - ENT Exam ENT Exam: Mucous Membranes Moist - Respiratory Exam Respiratory Exam: Clear to PA & Lateral - Cardiovascular Exam Cardiovascular Exam: REGULAR RHYTHM, +S1, +S2 - GI/Abdominal Exam GI & Abdominal Exam: Soft. absent: Tenderness - Neurological Exam Neurological exam: Alert, Oriented x3 - Psychiatric Exam Psychiatric exam: Normal Affect - Skin Skin Exam: Normal Color, Warm Discharge Plan - Follow Up Plan Condition: FAIR Disposition: HOME/ ROUTINE Patient education suggested?: Yes Instructions: Chest Pain (DC), Diabetes Type 2 (DC) Additional Instructions: Follow up with your PMD at [facility] within 1 week ED precautions: Return to the ED if your chest pain recurs,or you have shortness of breath, fever or other new symptoms or concerns presents. Referrals: [facility] [place] [Outside]
[2018-09-01] MEDS: Insulin Regular 100 units/ml SC SCH ×2 (09:45→12:31)
[2018-09-01] MEDS: Ranolazine 500 mg Extended Release Tablets PO SCH (09:47)
[2018-09-01 09:58] VITALS: BP 105/55; PULSE 65; RESP 20; TEMP 98.1; O2SAT 100
--- NOTE | 2018-09-01 10:36 | CP.PCM.CON ---
History of Present Illness - History of Present Illness History of Present Illness: This 73-year-old female, a hypertensive and diabetic with hypothyroidism came to the emergency room complaining of vague symptoms such as shortness of breath generalized fatigue and a sense of discomfort in the right infraclavicular area. The patient has been hospitalized in the past for chest pain and had had an abnormal nuclear scan in October of last year. Subsequently the patient underwent a coronary angiogram at the end of 2017 which did not demonstrate any significant coronary stenosis. The patient by her own account is extremely poor dietitian and does not avoid starchy foods. She is chronically overweight and extremely sedentary. Her chest discomfort has never been associated with any physical activity. He does not radiate to her arms or jaw and is never accompanied by any perspiration. Physical examination shows an overweight elderly female who is alert and awake. She was afebrile with a respiratory rate of 16 breaths/min and heart rate of 68 bpm regular. Rare isolated premature ventricular beats were evident on her telemetry. Her blood pressure was 140/74 mmHg. Her jugular venous pressure was not elevated and gallop and there was edema over her lower extremities. The pedal pulses were feeble but distinctly present. There were no carotid bruits. Thyroid and breast did not reveal anything abnormal. The apex was not palpable the first and second heart sounds were normal. There was no gallop or murmurs. Abdomen was soft liver and spleen are not palpable. Her lungs were clear. There were no rales. Her electrocardiogram showed sinus rhythm with rare isolated premature v entricular beats but otherwise in normal pattern. Earlier cardiograms of last year including the one in February had similar findings. Her labs were noted. TSH was normal. Troponin levels were normal as well. Impression: Atypical chest pain significant coronary stenosis. Acute coronary syndrome in a patient who had undergone coronary angiography at the end of last year with no evidence of significant coronary stenosis. Poorly controlled diabetes mellitus with significant hyperglycemia. Chronic exogenous obesity. Hypothyroidism. The patient may be allowed to return home to be managed as an outpatient. Past Patient History - Past Medical History & Family History Past Medical History?: Yes - Past Social History Smoking Status: Never Smoked - CARDIAC Hx Hypercholesterolemia: Yes Hx Hypertension: Yes - PULMONARY Hx Asthma: Yes - NEUROLOGICAL Hx Neurological Disorder: No - HEENT Hx HEENT Problems: Yes - RENAL Hx Chronic Kidney Disease: No - ENDOCRINE/METABOLIC Hx Hypothyroidism: Yes - HEMATOLOGICAL/ONCOLOGICAL Hx Blood Transfusions: Yes Hx Blood Transfusion Reaction: No - INTEGUMENTARY Hx Dermatological Problems: No - MUSCULOSKELETAL/RHEUMATOLOGICAL Hx Arthritis: Yes Hx Osteoporosis: Yes - GASTROINTESTINAL Hx Gastrointestinal Disorders: Yes Hx Gastroesophageal Reflux: Yes - GENITOURINARY/GYNECOLOGICAL Hx Genitourinary Disorders: No - PSYCHIATRIC Hx Depression: Yes - SURGICAL HISTORY Hx Surgeries: Yes Hx Cardiac Catheterization: Yes Hx Section: Yes Hx Tubal Ligation: Yes - ANESTHESIA Hx Anesthesia: Yes Hx Anesthesia Reactions: No Hx Malignant Hyperthermia: No Meds Allergies/Adverse Reactions: Allergies Allergy/AdvReac Type Severity Reaction Status Date / Time No Known Allergies Allergy Verified 08/31/18 10:57 - Medications Medications: Current Medications Alprazolam (Xanax) 0.5 mg PO HS [facility] Last Admin: 08/31/18 22:58 Dose: 0.5 mg Amantadine HCl (Amantadine 100 Mg Cap) 100 mg PO DAILY [facility] Last Admin: 09/01/18 09:42 Dose: 100 mg Aspirin (Ecotrin) 81 mg PO DAILY [facility] Last Admin: 09/01/18 09:42 Dose: 81 mg Atorvastatin Calcium (Lipitor) 20 mg PO HS [facility] Last Admin: 08/31/18 22:50 Dose: 20 mg Dextrose (Dextrose 50% Inj) 0 ml IV STAT PRN; Protocol PRN Reason: Hypoglycemia Protocol Dextrose (Glutose 15) 0 gm PO ONCE PRN; Protocol PRN Reason: Hypoglycemia Protocol Ezetimibe (Zetia) 10 mg PO HS [facility] Last Admin: 08/31/18 22:51 Dose: 10 mg Enoxaparin Sodium (Lovenox) 40 mg SC DAILY [facility]; Protocol Last Admin: 09/01/18 09:46 Dose: 40 mg Gabapentin (Neurontin) 300 mg PO Q12 [facility] Last Admin: 09/01/18 09:47 Dose: 300 mg Glucagon (Glucagen Diagnostic Kit) 0 mg IM STAT PRN; Protocol PRN Reason: Hypoglycemia Protocol Sodium Chloride (Sodium Chloride 0.9%) 1,000 mls @ 125 mls/hr IV .Q8H [facility] Stop: 09/01/18 16:47 Last Admin: 09/01/18 01:47 Dose: 125 mls/hr Insulin Detemir (Levemir) 42 units SC QPM [facility] Last Admin: 08/31/18 18:12 Dose: 42 u Insulin Human Lispro (Humalog) 12 units SC ACL [facility] Insulin Human Lispro (Humalog) 20 units SC BRK [facility] Last Admin: 09/01/18 09:44 Dose: 20 unit Insulin Human Regular (Humulin R) 0 units SC ACHS [facility]; Protocol Last Admin: 09/01/18 09:45 Dose: Not Given Levothyroxine Sodium (Synthroid) 88 mcg PO DAILY@0630 [facility] Last Admin: 09/01/18 05:47 Dose: 88 mcg Metoprolol Tartrate (Lopressor) 25 mg PO Q12 [facility] Last Admin: 09/01/18 09:46 Dose: Not Given Nitroglycerin (Nitrostat Sl Tab) 0.4 mg SL Q5M PRN PRN Reason: Pain, moderate (4-7) Quetiapine Fumarate (Seroquel) 100 mg PO HS [facility] Last Admin: 08/31/18 22:50 Dose: 100 mg Ranolazine (Ranexa) 500 mg PO Q12 [facility] Last Admin: 09/01/18 09:47 Dose: 500 mg Sitagliptin Phosphate (Januvia) 100 mg PO DAILY [facility] Last Admin: 09/01/18 09:45 Dose: 100 mg Results - Vital Signs Recent Vital Signs: Last Vital Signs Temp 98.1 F 09/01/18 09:57 Pulse 65 09/01/18 09:57 Resp 20 09/01/18 09:57 BP 105/55 L 09/01/18 09:57 Pulse Ox 100 09/01/18 09:57 - Labs Result Diagrams: 09/01/18 05:00 09/01/18 05:00 Labs: Laboratory Results - last 24 hr 08/31/18 08/31/18 08/31/18 11:40 11:40 12:20 WBC 5.2 RBC 3.99 Hgb 11.9 L Hct 36.2 MCV 90.6 MCH 29.8 MCHC 32.9 L RDW 14.1 Plt Count 265 MPV 8.8 Neut % (Auto) 69.7 Lymph % (Auto) 18.2 L Dare % (Auto) 7.9 Eos % (Auto) 3.4 Baso % (Auto) 0.8 Neut # (Auto) 3.6 Lymph # (Auto) 0.9 L Dare # (Auto) 0.4 Eos # (Auto) 0.2 Baso # (Auto) 0.0 Sodium 139 Potassium 5.1 H Chloride 104 Carbon Dioxide 23 Anion Gap 17 BUN 32 H Creatinine 1.3 H Est GFR ( Amer) 49 Est GFR (Non-Af Amer) 40 POC Glucose (mg/dL) > 500 H* Random Glucose 515 H* D Calcium 9.9 Total Bilirubin 0.4 AST 16 ALT 13 Alkaline Phosphatase 199 H D Troponin I < 0.0120 Total Protein 7.9 Albumin 4.3 Globulin 3.6 Albumin/Globulin Ratio 1.2 Triglycerides Cholesterol LDL Cholesterol Direct HDL Cholesterol TSH 3rd Generation 08/31/18 08/31/18 08/31/18 13:34 15:25 16:00 WBC RBC Hgb Hct MCV MCH MCHC RDW Plt Count MPV Neut % (Auto) Lymph % (Auto) Dare % (Auto) Eos % (Auto) Baso % (Auto) Neut # (Auto) Lymph # (Auto) Dare # (Auto) Eos # (Auto) Baso # (Auto) Sodium Potassium Chloride Carbon Dioxide Anion Gap BUN Creatinine Est GFR ( Amer) Est GFR (Non-Af Amer) POC Glucose (mg/dL) 414 H* 337 H Random Glucose Calcium Total Bilirubin AST ALT Alkaline Phosphatase Troponin I Total Protein Albumin Globulin Albumin/Globulin Ratio Triglycerides 127 Cholesterol 163 LDL Cholesterol Direct 55 HDL Cholesterol 72 H TSH 3rd Generation 08/31/18 08/31/18 08/31/18 18:02 18:20 19:47 WBC RBC Hgb Hct MCV MCH MCHC RDW Plt Count MPV Neut % (Auto) Lymph % (Auto) Dare % (Auto) Eos % (Auto) Baso % (Auto) Neut # (Auto) Lymph # (Auto) Dare # (Auto) Eos # (Auto) Baso # (Auto) Sodium Potassium Chloride Carbon Dioxide Anion Gap BUN Creatinine Est GFR ( Amer) Est GFR (Non-Af Amer) POC Glucose (mg/dL) 262 H Random Glucose Calcium Total Bilirubin AST ALT Alkaline Phosphatase Troponin I < 0.0120 Total Protein Albumin Globulin Albumin/Globulin Ratio Triglycerides Cholesterol LDL Cholesterol Direct HDL Cholesterol TSH 3rd Generation 2.24 08/31/18 09/01/18 09/01/18 21:55 01:30 05:00 WBC RBC Hgb Hct MCV MCH MCHC RDW Plt Count MPV Neut % (Auto) Lymph % (Auto) Dare % (Auto) Eos % (Auto) Baso % (Auto) Neut # (Auto) Lymph # (Auto) Dare # (Auto) Eos # (Auto) Baso # (Auto) Sodium 140 Potassium 4.4 Chloride 109 H Carbon Dioxide 23 Anion Gap 12 BUN 33 H Creatinine 1.3 H Est GFR ( Amer) 49 Est GFR (Non-Af Amer) 40 POC Glucose (mg/dL) 270 H Random Glucose 152 H Calcium 8.8 Total Bilirubin AST ALT Alkaline Phosphatase Troponin I < 0.0120 Total Protein Albumin Globulin Albumin/Globulin Ratio Triglycerides Cholesterol LDL Cholesterol Direct HDL Cholesterol TSH 3rd Generation 09/01/18 09/01/18 05:00 07:07 WBC 7.0 RBC 3.30 L Hgb 9.9 L D Hct 29.7 L MCV 90.0 MCH 30.1 MCHC 33.5 RDW 13.5 Plt Count 221 MPV 8.6 Neut % (Auto) 55.9 Lymph % (Auto) 31.6 Dare % (Auto) 8.6 Eos % (Auto) 3.1 Baso % (Auto) 0.8 Neut # (Auto) 3.9 Lymph # (Auto) 2.2 Dare # (Auto) 0.6 Eos # (Auto) 0.2 Baso # (Auto) 0.1 Sodium Potassium Chloride Carbon Dioxide Anion Gap BUN Creatinine Est GFR ( Amer) Est GFR (Non-Af Amer) POC Glucose (mg/dL) 128 H Random Glucose Calcium Total Bilirubin AST ALT Alkaline Phosphatase Troponin I Total Protein Albumin Globulin Albumin/Globulin Ratio Triglycerides Cholesterol LDL Cholesterol Direct HDL Cholesterol TSH 3rd Generation
== END 2018-09-01 12:59 | disposition home or self-care (01) ==
LOC: H.ER 10:38 → H.ERHOLD 14:12 → H.TEL 16:15
DX: R07.89 Other chest pain (principal); E66.09 Other obesity due to excess calories; Z68.36 Body mass index [BMI] 36.0-36.9, adult; E11.65 Type 2 diabetes mellitus with hyperglycemia; E11.22 Type 2 diabetes mellitus with diabetic chronic kidney disease; I12.9 Hypertensive chronic kidney disease with stage 1 through stage 4 chronic kidney disease, or unspecified chronic kidney disease; N18.3 Chronic kidney disease, stage 3 (moderate); J45.20 Mild intermittent asthma, uncomplicated; Z79.4 Long term (current) use of insulin; Z79.890 Hormone replacement therapy; Z79.82 Long term (current) use of aspirin; Z23 Encounter for immunization; I25.10 Atherosclerotic heart disease of native coronary artery without angina pectoris; E78.5 Hyperlipidemia, unspecified; E78.00 Pure hypercholesterolemia, unspecified; D63.8 Anemia in other chronic diseases classified elsewhere; E03.9 Hypothyroidism, unspecified; I27.20 Pulmonary hypertension, unspecified; Z98.61 Coronary angioplasty status; F32.9 Major depressive disorder, single episode, unspecified; K21.9 Gastro-esophageal reflux disease without esophagitis; M81.0 Age-related osteoporosis without current pathological fracture; F41.9 Anxiety disorder, unspecified; Z87.891 Personal history of nicotine dependence
CPT/HCPCS: 36415; 71046; 74176; 80048; 80053; 80061; 82948; 84443; 84484; 85025; 90674; 93005; 96372; 99284; G0008; G0378; J1650; J7030